=== PATIENT | female | born 1995 | race Caucasian/White ===

== ENCOUNTER 2017-10-06 15:48 | Emergency (ER) | payer BC ==
[2017-10-06 19:01] VITALS: BP 124/74
--- NOTE | 2017-10-06 19:05 | UC ---
Complaint Female HPI - HPI Summary HPI Summary: 22 y/o female presents to the urgent care c/o burning and frequency on urination for the past 4 days. Pt reports she had a mild vaginal discomfort when she wear tight clothing for the past 1.5 weeks. Pain is 2/10. LMP:2017. Pt deneis fever, back pain, pelvic pain, vaginal discahrge, Hx of kidney stones, STD's abdominal pain, N/V/D. - History Of Current Complaint Chief Complaint: UCGU Stated Complaint: URINARY Time Seen by Provider: 10/06/17 18:52 Hx Obtained From: Patient Hx Last Menstrual Period: 09/27/16 ?: No Onset/Duration: Gradual Onset, Lasting Days - 4 days, Still Present Timing: Intermittent Severity Initially: Mild Severity Currently: Mild Pain Intensity: 2 Pain Scale Used: 0-10 Numeric Character: Burning Aggravating Factor(s): Urination Alleviating Factor(s): Nothing Associated Signs And Symptoms: Positive: Negative. Negative: Fever, Back Pain, Vaginal Bleeding/Discharge, Genital Swelling - Risk Factors Ectopic Risk Factor: Negative Ovarian Torsion Risk Factor: Negative - Allergies/Home Medications Allergies/Adverse Reactions: Allergies Allergy/AdvReac Type Severity Reaction Status Date / Time Amoxicillin [From Augmentin] Allergy Intermediate Hives Verified 10/06/17 19:01 Clavulanic Acid Allergy Intermediate Hives Verified 10/06/17 19:01 [From Augmentin] Penicillins Allergy Intermediate Hives Verified 10/06/17 19:01 Home Medications: Home Medications Norgestimate-Eth Estradiol(NF) [Ortho Tri-Cyclen (NF)] 1 tab PO DAILY 10/06/17 [ History Confirmed 10/06/17] PMH/Surg Hx/FS Hx/Imm Hx Previously Healthy: Yes - Pt denies PMHX - Surgical History Surgical History: Yes Surgery Procedure, Year, and Place: ear tubes - Family History Known Family History: Positive: Hypertension, Diabetes - Social History Occupation: Employed Full-time Lives: With Family Alcohol Use: Occasionally Substance Use Type: None Smoking Status (MU): Never Smoked Tobacco Review of Systems Constitutional: Negative Skin: Negative Eyes: Negative ENT: Negative Respiratory: Negative Cardiovascular: Negative Gastrointestinal: Negative Genitourinary: Dysuria, Frequency Motor: Negative Neurovascular: Negative Musculoskeletal: Negative Neurological: Negative Psychological: Negative Is Patient Immunocompromised?: No All Other Systems Reviewed And Are Negative: Yes Physical Exam Triage Information Reviewed: Yes Vital Signs: Initial Vital Signs Temp 97.8 F 10/06/17 18:54 Pulse 73 10/06/17 18:54 Resp 18 10/06/17 18:54 BP 124/74 10/06/17 18:54 Pulse Ox 100 10/06/17 18:54 - Additional Comments VITAL SIGNS: Reviewed. GENERAL: Patient is a well developed and nourished female who is sitting comfortable in the examining table. Patient is not in any acute respiratory distress. HEAD AND FACE: No signs of trauma. No ecchymosis, hematomas or skull depressions. No sinus tenderness. EYES: PERRLA, EOMI x 2, No injected conjunctiva, clear watery eyes, no nystagmus. No photophobia. EARS: Hearing grossly intact. Ear canals and tympanic membranes are within normal limits. MOUTH: pharynx with no erythema, no exudates,no palatal petechiae. no B/L tonsillar enlargement Uvula in midline. NECK: Supple, trachea is midline, no lymphadenopathy, no JVD, no carotid bruit, no c-spine tenderness, neck with full ROM. CHEST: Symmetric, no tenderness at palpation LUNGS: Clear to auscultation bilaterally. No wheezing or crackles. CVS: Regular rate and rhythm, S1 and S2 present, no murmurs or gallops appreciated. ABDOMEN: Soft, non-tender. No signs of distention. No rebound no guarding, and no masses palpated. Bowel sounds are normal. BACK:no scoliosis or lesions, non tender to palpation, No B/L CVA tenderness EXTREMITIES: FROM in all major joints, no edema, no cyanosis or clubbing. NEURO: Alert and oriented x 3. No acute neurological deficits. Speech is normal and follows commands. SKIN: Dry and warm Complaint Female Dx - Course Course Of Treatment: 22 y/o female presents to the urgent care c/o burning and frequency on urination for the past 4 days. Pt reports she had a mild vaginal discomfort when she wear tight clothing for the past 1.5 weeks. Pain is 2/10. LMP:09/27/2017. Pt deneis fever, back pain, pelvic pain, vaginal discharge, Hx of kidney stones, STD's abdominal pain, N/V/D.Hx obtained. PE WNL. Pt declined Pelvic examination. UA and test ordered. UA results: Blood trace. test: negative. Pt Rx Pyridium 100mg PO TID x 2 days for dyuria. Advised to increase fluid intake. Urine sent for culture if any abnormality Pt will be notified for further treatment. Pt advised If symptoms do not improve to return to the urgent care or f/u with PCP. Pt understood and agreed. Left the clinic ambulating. - Differential Dx/Diagnosis Differential Diagnosis/HQI/PQRI: Cervicitis, Pelvic Inflammatory Disease, Renal Colic, Sexually Transmitted Disease, Ureteral Stone, Urinary Tract Infection Provider Diagnoses: 1- dysuria Discharge - Discharge Plan Condition: Stable Disposition: HOME Prescriptions: Phenazopyridine TAB* [Pyridium 100 mg TAB*] 100 mg PO TID #6 tab Patient Education Materials: Dysuria (ED) Referrals: FABIAN Kim [Primary Care Provider] - 2 Days Additional Instructions: 1- Please take Pyridium 100 mg PO TID x 2 days to alleviate urinary symptoms. Increase increase fluid intake. drink cranberry juice. 2-Urine sent for culture if any abnormality, you will be notified for further treatment. 3-If symptoms do not improve please return to the urgent care or f/u with her PCP.
== END 2017-10-06 19:45 | disposition home or self-care (01) ==
LOC: UCCORT 15:48
DX: R30.0 Dysuria (principal); R35.0 Frequency of micturition; R10.2 Pelvic and perineal pain; Z32.02 Encounter for pregnancy test, result negative; Z87.442 Personal history of urinary calculi; Z88.1 Allergy status to other antibiotic agents; Z88.0 Allergy status to penicillin
CPT/HCPCS: 81003; 84702; 87086; 99212; G0463

== ENCOUNTER 2018-03-09 17:16 | Emergency (ER) | payer BC ==
[2018-03-09 18:21] VITALS: BP 111/64
--- NOTE | 2018-03-09 18:56 | UC ---
Complaint Female HPI - HPI Summary HPI Summary: Pt c/o sudden onset of vaginal swelling, itching and thick white discharge. Pt has history of frequency vaginal yeast infections. Denies urinary symptoms of frequency, urgency and dysuria. Denies exposure to STD's. - History Of Current Complaint Hx Obtained From: Patient Hx Last Menstrual Period: 02/11/18 on BCP ?: No Onset/Duration: Sudden Onset, Lasting Days, Still Present Timing: Constant Severity Initially: Mild Severity Currently: Mild Pain Intensity: 0 Character: Dull, Burning Aggravating Factor(s): Movement, Urination <Joselin Saelh NP - Last Filed: 03/09/18 19:12> <Karlo Ortiz - Last Filed: 03/09/18 20:34> - History Of Current Complaint Chief Complaint: UCGeneralIllness Stated Complaint: PERSONAL COMPLAINT Time Seen by Provider: 03/09/18 18:24 - Allergies/Home Medications Allergies/Adverse Reactions: Allergies Allergy/AdvReac Type Severity Reaction Status Date / Time amoxicillin [From Augmentin] Allergy Intermediate Hives Verified 03/09/18 18:22 clavulanic acid Allergy Intermediate Hives Verified 03/09/18 18:22 [From Augmentin] Penicillins Allergy Intermediate Hives Verified 03/09/18 18:22 PMH/Surg Hx/FS Hx/Imm Hx Previously Healthy: Yes - Surgical History Surgical History: Yes Surgery Procedure, Year, and Place: ear tubes - Family History Known Family History: Positive: Hypertension, Diabetes - Social History Occupation: Student Lives: With Family Alcohol Use: Occasionally Substance Use Type: None Smoking Status (MU): Never Smoked Tobacco Have You Smoked in the Last Year: No <Joselin Saleh NP - Last Filed: 03/09/18 19:12> Review of Systems Constitutional: Negative Skin: Negative Eyes: Negative ENT: Negative Respiratory: Negative Cardiovascular: Negative Gastrointestinal: Negative Genitourinary: Vaginal/Penile Burning, Vaginal/Penile Itching, Vaginal/Penile Discharge Motor: Negative Neurovascular: Negative Musculoskeletal: Negative Neurological: Negative Psychological: Negative Is Patient Immunocompromised?: No All Other Systems Reviewed And Are Negative: Yes <Joselin Saleh NP - Last Filed: 03/09/18 19:12> Physical Exam Triage Information Reviewed: Yes Appearance: Well-Appearing Vital Signs: Initial Vital Signs Temp 98.9 F 03/09/18 18:17 Pulse 83 03/09/18 18:17 Resp 16 03/09/18 18:17 BP 111/64 03/09/18 18:17 Pulse Ox 100 03/09/18 18:17 Vital Signs Reviewed: Yes Eye Exam: Normal ENT: Positive: Hearing grossly normal Dental Exam: Normal Neck exam: Normal Respiratory: Positive: No respiratory distress Musculoskeletal Exam: Normal Neurological Exam: Normal Psychological Exam: Normal Skin Exam: Normal <Joselin Saleh NP - Last Filed: 03/09/18 19:12> Vital Signs: Initial Vital Signs Temp 98.9 F 03/09/18 18:17 Pulse 83 03/09/18 18:17 Resp 16 03/09/18 18:17 BP 111/64 03/09/18 18:17 Pulse Ox 100 03/09/18 18:17 <Karlo Ortiz - Last Filed: 03/09/18 20:34> Complaint Female Dx - Course Course Of Treatment: Pt declined pelvic exam, declined affirm testing and STD testing. - Differential Dx/Diagnosis Differential Diagnosis/HQI/PQRI: Urinary Tract Infection Provider Diagnoses: vaginitis <Joselin Saleh NP - Last Filed: 03/09/18 19:12> Discharge - Sign-Out/Discharge Documenting (check all that apply): Discharge/Admit/Transfer - Billing Disposition and Condition Condition: STABLE Disposition: Home <Joselin Saleh NP - Last Filed: 03/09/18 19:12> - Billing Disposition and Condition Condition: STABLE Disposition: Home <Karlo Ortiz - Last Filed: 03/09/18 20:34> - Discharge Plan Condition: Stable Disposition: HOME Prescriptions: Fluconazole 100 MG TAB* [Diflucan 100 MG TAB*] 100 mg PO DAILY #2 tab Patient Education Materials: Vaginitis (ED) Referrals: Nohelia Fowler MD [Primary Care Provider] - If Needed Additional Instructions: Per institutional requirements, I have reviewed the chart, however, I was not consulted specifically or made aware of this patient by the above midlevel provider. I did not personally evaluate, interact with , or disposition this patient.
== END 2018-03-09 19:04 | disposition home or self-care (01) ==
LOC: UCCORT 17:16
DX: N76.0 Acute vaginitis (principal)
CPT/HCPCS: 81003; 87086; 99212; G0463